=== PATIENT | female | born 1945 | race Caucasian/White ===

== ENCOUNTER → 2016-08-01 | Outpatient (CLI) | payer MEDICARE ==
[~2016-08-01] MED LIST: REGADENOSON 0.4 MG/5 ML SYRINGE IV ONE
--- NOTE | 2016-08-01 10:51 | ECHOF ---
Referral Reason:R94.31 abn ekg MEASUREMENTS -------- HEIGHT: 154.9 cm WEIGHT: 59.0 kg BP: IVSd: 0.7 cm (0.6 - 1.1) LVIDd: 3.6 cm (3.9 - 5.3) LVPWd: 1.0 cm (0.6 - 1.1) IVSs: 1.6 cm LVIDs: 2.1 cm LVPWs: 1.5 cm Ao Diam: 2.5 cm (2.0 - 3.7) AV Cusp: 1.3 cm (1.5 - 2.6) LA Diam: 3.6 cm (2.7 - 3.8) MV EXCURSION: 10.759 mm (> 18.000) MV EF SLOPE: 48 mm/s (70 - 150) EPSS: 0.6 cm MV E Tyler: 0.85 m/s MV DecT: 185 ms MV A Tyler: 1.08 m/s MV E/A Ratio: 0.79 RAP: 5.00 mmHg RVSP: 31.22 mmHg FINDINGS -------- Sinus rhythm. This was a technically good study. Left ventricular wall thickness is normal. Overall left ventricular systolic function is normal with, an EF between 55 - 60 %. The right ventricle is normal in size and function. The left atrium is normal in size. The right atrium is normal in size. Aortic valve is trileaflet and is mildly thickened. The mitral valve leaflets are mildly thickened. Mild mitral regurgitation is present. Mild tricuspid regurgitation present. The right ventricular systolic pressure, as measured by Doppler, is 31.22mmHg. Pulmonic valve appears structurally normal. The aortic root, ascending aorta and aortic arch are normal. The pericardium is normal. CONCLUSIONS -------- 1. Sinus rhythm. 2. Mild mitral regurgitation is present. 3. Mild tricuspid regurgitation present. 4. The right ventricular systolic pressure, as measured by Doppler, is 31.22mmHg. 5. Pulmonic valve appears structurally normal. 6. The aortic root, ascending aorta and aortic arch are normal. 7. The pericardium is normal. 8. This was a technically good study. 9. Left ventricular wall thickness is normal. 10. Overall left ventricular systolic function is normal with, an EF between 55 - 60 %. 11. The right ventricle is normal in size and function. 12. The left atrium is normal in size. 13. The right atrium is normal in size. 14. Aortic valve is trileaflet and is mildly thickened. 15. The mitral valve leaflets are mildly thickened. PESTICIDE APPLICATOR: Kassandra Ford RDCS
--- NOTE | 2016-08-01 11:43 | NM ---
EXAMINATION TYPE: NM stress lexiscan cardiolite DATE OF EXAM: 08/01/2016 11:35 AM COMPARISON: NONE HISTORY: Abnormal EKG TECHNIQUE: After the intravenous administration of 9.9 mCi Tc 99m Sestamibi - Cardiolite resting SPE CT images acquired 45 minutes post injection. The patient received 0.4mg Lexiscan, 27 mCi Tc 99m Sestamibi - Stress images obtained 30 minutes post injection FINDINGS: Review of stress and rest SPECT images demonstrates no distinct perfusion abnormality. Gated analysi s shows normal wall motion with an estimated left ventricular ejection fraction of 79 %. IMPRESSION: No scintigraphic evidence for reversible ischemia.
--- NOTE | 2016-08-01 12:08 | EST ---
DATE OF SERVICE: 08/01/16. AGE: 71Y SEX: F HT: 5' WT: 130 lbs. Protocol Arnaud: Other: Stage: Dur. of Exercise: *Heart Rate Blood Pressure *Rest: 73 Rest: 130/72 * *Max. Achieved: 102 Maximum BP: 117/69 85% PMHR: 100% PMHR: *METS: INDICATIONS: To evaluate cardiac status. MEDICATIONS: Baseline EKG showed sinus rhythm with a right bundle branch block pattern. Blood pressure at rest is 130/72 with a pulse rate of 73. A standard dose of Lexiscan was infused. EKGs taken during and after infusion did not reveal any significant changes from the baseline. FINAL IMPRESSION: 1. Negative Lexiscan stress test. 2. Report on the nuclear images to be given by the radiologist.
== END | disposition home or self-care (01) ==
LOC: RADNMMAIN 09:07
PROVIDERS: ATTEND Family Medicine
DX: R94.31 Abnormal electrocardiogram [ECG] [EKG] (principal)
CPT/HCPCS: 93017; 93306; 78452; A9500; J2785

== ENCOUNTER → 2017-01-16 | Outpatient (CLI) | payer MEDICARE ==
--- NOTE | 2017-01-16 14:46 | NM ---
EXAMINATION TYPE: NM bone scan whole body DATE OF EXAM: 01/16/2017 COMPARISON: NONE HISTORY: Left hip pain Delayed whole-body scanning was performed following the injection of 27 mCi Tc 99m MDP. Images acqui red 3.5 hours post injection. FINDINGS: There is increased uptake surrounding the left hip prostheses. Photopenic defect is seen bilaterally compatible with bilateral hip prostheses. IMPRESSION: There is increased uptake surrounding the shaft of the left hip prostheses which could be associated with loosening or infection correlate with tagged WBC study.
== END ==
LOC: RADNMMAIN 09:39
PROVIDERS: ATTEND Family Medicine
DX: S72.92XA Unspecified fracture of left femur, initial encounter for closed fracture (principal)
CPT/HCPCS: 78306; A9503

== ENCOUNTER → 2017-02-27 | Outpatient (CLI) | payer MEDICARE ==
--- NOTE | 2017-03-01 13:18 | NM ---
EXAMINATION TYPE: NM WBC limited DATE OF EXAM: 02/28/2017 COMPARISON: Bone scan 01/16/2017 HISTORY: Pain TECHNIQUE: Following administration of 18.1 mCi Tc99m Ceretec. Images obtained 4 hour(s) and 24 gustavo r(s) post injection. FINDINGS: There is no intense abnormal uptake surrounding the left hip prostheses. Bilateral photopenic defects are seen. IMPRESSION: No intense abnormal uptake regarding the left hip prostheses. Previous finding may been the basis of loosening or recent surgery. Correlate clinically.
== END | disposition home or self-care (01) ==
LOC: RADNMMAIN 06:47
PROVIDERS: ATTEND Family Medicine
DX: M25.552 Pain in left hip (principal); Z98.890 Other specified postprocedural states
CPT/HCPCS: 78805

== ENCOUNTER 2017-09-21 15:04 | Inpatient (IN) | payer MEDICARE ==
[2017-09-21] MEDS ORDERED: HYDROcodone/APAP 5-325MG 1 EACH TAB PO PRN (16:11)
[2017-09-21 17:04] VITALS: BMI 23.6
[2017-09-21] MEDS ORDERED: oxyCODONE-APAP 5-325MG 1 EACH TAB PO PRN (17:05)
[2017-09-21] MEDS: oxyCODONE-APAP 5-325MG 1 EACH TAB PO PRN ×2 (17:23→21:07)
--- NOTE | 2017-09-21 17:56 | P.CNOR ---
History of Present Illness - [facility] Consult date: 09/21/17 Consult reason: fracture History of present illness: This is a 72-year-old female who is seen and evaluated today at bedside [facility]. Patient was a direct admit due to abnormal x-rays. Patient apparently had a fall about 2 weeks ago in her kitchen, this was unobserved the patient cannot remember specifically how she fell. Since that fall she's had right leg and hip pain. The pain has progressively gotten worse , her primary care doctor did order x-rays today. Images demonstrated a acetabular fracture involving the right side and possible inferior pubic rami fracture on the right side. She was then admitted directly to the hospital for further evaluation. Patient is a history of a right total hip arthroplasty and right total knee arthroplasty that were done about 3 years ago. 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 She was treated at [facility] for this. Her short-term memory was affected. she then underwent a left total hip arthroplasty in 2017, they stated about 10 days after surgery she was having increasing pain. She was found to have a periprosthetic fracture involving the left femur, and underwent subsequent surgery. All her orthopedic surgeries have been done by Dr. Herrera in [place]. Patient has undergone a few different imaging studies for pain involving the left lower extremity, there has been no further surgeries to the left lower extremity since those tests. Patient had been doing rather well with regards to left lower extremity. Since the fall, the pain is mainly involve the right side. She notes no acute changes in the left lower extremity, bilateral upper extremity pain, new onset cervical, thoracic or lumbar pain. When examined today at bedside, she describes more the pain in the buttock region on the right lower extremity, she also notes some discomfort surrounding the knee. Review of Systems Constitutional: Reports as per HPI Past Medical History Past Medical History: Blood Disorder, CVA/TIA, Diabetes Mellitus, Eye Disorder, Hyperlipidemia, Memory Impairment, Osteoarthritis (OA), Pneumonia Additional Past Medical History / Comment(s): anemia, cva mar 2015, leaky heart valve History of Any Multi-Drug Resistant Organisms: None Reported Past Surgical History: Section, Orthopedic Surgery, Tonsillectomy Additional Past Surgical History / Comment(s): x 2, bilateral hip replacements, left hip x 2, right knee replacement Past Anesthesia/Blood Transfusion Reactions: No Reported Reaction Past Psychological History: No Psychological Hx Reported Smoking Status: Never smoker Past Alcohol Use History: None Reported Past Drug Use History: None Reported - Past Family History Father Family Medical History: Respiratory Disorder Additional Family Medical History / Comment(s): fibrosis emphysema Mother Family Medical History: Cancer Medications and Allergies Home Medications Medication Instructions Recorded Confirmed Type Aspirin EC [Ecotrin Low Dose] 81 mg PO DAILY 09/21/17 09/21/17 History Atorvastatin [Lipitor] 20 mg PO HS 09/21/17 09/21/17 History Cyanocobalamin (Vitamin B-12) 1,000 mcg PO DAILY 09/21/17 09/21/17 History [Vitamin B-12] Memantine HCl [Namenda] 5 mg PO BID 09/21/17 09/21/17 History Naproxen Sodium [Aleve] 220 mg PO BID PRN 09/21/17 09/21/17 History Vit C/E/Zn/Coppr/Lutein/Zeaxan 1 cap PO BID 09/21/17 09/21/17 History [Preservision Areds 2 Softgel] metFORMIN HCL 1,000 mg PO BID 09/21/17 09/21/17 History Allergies Allergy/AdvReac Type Severity Reaction Status Date / Time grape Allergy Anaphylaxis Verified 09/21/17 16:49 latex Allergy Rash/Hives Verified 09/21/17 16:49 peanut Allergy Anaphylaxis Verified 09/21/17 16:49 Penicillins Allergy Rash/Hives Verified 09/21/17 16:49 Sulfa (Sulfonamide Allergy Rash/Hives Verified 09/21/17 16:49 Antibiotics) Physical Examination Right lower extremity: No obvious open lesions or sores present Areas of ecchymosis or soft tissue swelling Notable scar of the anterior aspect of the knee, it is well-healed. No effusion present on the knee. She can fully extend and flex past 90 and minimal discomfort. There is slight tenderness with palpation noted over the anterior distal thigh. She can flex the hip up to about 90 with minimal discomfort, logroll maneuver reproduces some discomfort in the groin and posterior buttock region Her calf is soft, no tenderness with palpation. Plantar flexion, dorsiflexion, EHL, FHL are intact. Sensory exam to light touch throughout extremities intact. Dorsal pedis pulses 2+ Results - Diagnostic results Hip x-ray: report reviewed, image reviewed Assessment and Plan Assessment: Imaging: Multiple x-rays were reviewed today, including hip and pelvis, right femur, right tibia and fibula. Images demonstrated a stable right total knee arthroplasty images demonstrated a stable right hip prosthesis. Fracture noted of the acetabulum. Irregularity noted in the inferior pubic rami, this could represent a subacute fracture Assessment: 1. Right acetabular fracture 2. Possible subacute inferior pubic rami fracture 3. History of right total hip arthroplasty and right total knee arthroplasty, both appear stable Plan: I was able to discuss this case and reviewed images with maintained Dr. Florez. No orthopedic surgical intervention needed at this time. We would like to proceed with conservative measures, more specifically nonweightbearing on the right lower extremity I was able to discuss the treatment plan with the patient and her today bedside, they are in good understanding and would like to proceed Nonweightbearing right lower extremity Pain control per medical recommendations GI and DVT prophylaxis per medical recommendations We will continue to follow the patient during inpatient stay Further recommendations to follow Time with Patient: Less than 30
[2017-09-21] MEDS: INSULIN ASPART 100 UNIT/ML 1 ML 10 ML VIAL SQ SCH ×2 (19:37→21:08)
[2017-09-21 20:22] LABS: Glucose,Whole Blood 163 mg/dL (75-99)
[2017-09-21] MEDS ORDERED: NAPROXEN 250 MG TAB PO PRN (22:36)
--- NOTE | 2017-09-21 23:19 | HP ---
HISTORY AND PHYSICAL CHIEF COMPLAINT: Pelvic fracture. HISTORY OF PRESENT ILLNESS: 72-year-old white female who was admitted due to acute pelvic fracture and inability to ambulate on her right leg. She fell a few weeks ago and has been progressively worsening. She has acetabular fracture on the right side and a possible inferior pubic rami fracture, right-sided pain radiating to the right and limited ambulation. She has a history of a right total hip arthroscopy, right total knee arthroscopy 3 years ago. She developed a stroke postop for those. She had short-term memory was affected. She had a left hip total arthroscopy in 2017. She had a periprosthetic fracture of the left femur at that time by Dr. Herrera. This pain is mostly in the right hip to the right pelvic area. She has cervical, thoracic and lumbar pain. Pain is mainly in the right buttock and the right lower extremity in the right anterior pelvic area. PAST MEDICAL HISTORY: Blood disorder, CVA, TIA, diabetes mellitus, eye disorder, dyslipidemia, memory impairment, osteoarthritis, pneumonia, anemia, leaky heart valve, surgery, , orthopedic surgery, tonsillectomy, , bilateral hip replacements, left hip x2, right knee replacement, left knee replacement. SOCIAL HISTORY: No smoking. No alcohol. No illicit drugs. FAMILY HISTORY: Father, respiratory disorder, emphysema. Mother cancer. HOME MEDICATIONS: Include aspirin 81 mg daily, Lipitor 20 mg daily. Namenda 5 mg b.i.d. vitamin C, E, zinc, copper, lutein, B12, metformin 1000 b.i.d. ALLERGIES: PEANUTS, LATEX, GRAPES, SULFA. PHYSICAL EXAM: Vital signs stable. Afebrile. Cardiovascular S1, S2. LUNGS: Clear. GI soft. Musculoskeletal is palpation right hip, right groin. Limited range of motion of the right hip and leg. Log-rolling had pain in the groin and posterior buttock region. Hematology negative Homans. Vascular normal dorsalis pedis posterior radial pulse. Tenderness to palpation in the anterior distal thigh in the right groin area in the abdomen in the right hip. X-ray shows a fracture of the acetabulum, possibly inferior pubic rami fracture too. Inpatient admission. Possible PT OT, pain medications, rehab versus orthopedic consultations recommendation. MMODL / IJN: [id number] /
[2017-09-22] MEDS: SODIUM CHLORIDE 0.9% 1,000 ML IV SCH ×2 (00:28→20:53)
[2017-09-22 07:09] LABS: Glucose,Whole Blood 135 mg/dL (75-99)
[2017-09-22] MEDS: ONDANSETRON 4 MG/2 ML VIAL IVP PRN ×2 (08:21→13:48)
[2017-09-22] MEDS: CYANOCOBALAMIN 500 MCG TAB PO SCH (08:27)
[2017-09-22] MEDS: INSULIN ASPART 100 UNIT/ML 1 ML 10 ML VIAL SQ SCH ×4 (08:27→20:51)
[2017-09-22] MEDS: VIT A,C & E-LUTEIN-MINERALS 1 EACH TAB PO SCH ×2 (08:28→20:52)
[2017-09-22] MEDS: metFORMIN 500 MG TAB PO SCH ×2 (09:53→17:34)
[2017-09-22] MEDS: ASPIRIN 81 MG PO SCH (09:53)
[2017-09-22] MEDS: MEMANTINE 5 MG TAB PO SCH ×2 (09:53→20:52)
[2017-09-22] MEDS: oxyCODONE-APAP 5-325MG 1 EACH TAB PO PRN ×2 (11:36→23:56)
[2017-09-22 12:00] LABS: Glucose,Whole Blood 178 mg/dL (75-99)
[2017-09-22 16:53] LABS: Glucose,Whole Blood 147 mg/dL (75-99)
[2017-09-22 18:38] LABS: Hemoglobin A1C 6.3 % (4.0-6.0)
[2017-09-22] MEDS: ATORVASTATIN 20 MG TAB PO SCH (20:53)
[2017-09-22 20:54] LABS: Glucose,Whole Blood 127 mg/dL (75-99)
[2017-09-23 06:46] LABS: Glucose,Whole Blood 117 mg/dL (75-99)
[2017-09-23] MEDS: INSULIN ASPART 100 UNIT/ML 1 ML 10 ML VIAL SQ SCH ×4 (07:58→20:06)
[2017-09-23] MEDS: ONDANSETRON 4 MG/2 ML VIAL IVP PRN (08:01)
[2017-09-23] MEDS: oxyCODONE-APAP 5-325MG 1 EACH TAB PO PRN ×2 (08:02→15:26)
[2017-09-23] MEDS: VIT A,C & E-LUTEIN-MINERALS 1 EACH TAB PO SCH ×2 (08:02→20:06)
[2017-09-23] MEDS: CYANOCOBALAMIN 500 MCG TAB PO SCH (08:03)
[2017-09-23] MEDS: metFORMIN 500 MG TAB PO SCH ×2 (08:03→17:28)
[2017-09-23] MEDS: ASPIRIN 81 MG PO SCH (08:03)
[2017-09-23] MEDS: MEMANTINE 5 MG TAB PO SCH ×2 (08:03→20:06)
[2017-09-23 11:36] LABS: Glucose,Whole Blood 99 mg/dL (75-99)
--- NOTE | 2017-09-23 13:33 | PN ---
PROGRESS NOTE DATE OF SERVICE: 09/22/2017. SUBJECTIVE: A 72-year-old white female who was admitted to the hospital with pelvic ramus fractures, it is on the right side. correction placement is needed. Awaiting for rehab placement. Her vital signs are stable. Pain is under control. CARDIOVASCULAR: S1, S2. We gave her nausea medicine as she had some nausea. GI: Soft, nontender. HEMATOLOGIC: Negative Homans. PLAN: Await for rehab placement in the residential, hopefully on Monday. Continue on current treatment. MMODL / IJN: [id number] /
[2017-09-23] MEDS: SODIUM CHLORIDE 0.9% 1,000 ML IV SCH (16:27)
[2017-09-23 16:48] LABS: Glucose,Whole Blood 154 mg/dL (75-99)
[2017-09-23] MEDS: ATORVASTATIN 20 MG TAB PO SCH (20:06)
[2017-09-23 20:25] LABS: Glucose,Whole Blood 168 mg/dL (75-99)
--- NOTE | 2017-09-23 23:14 | PN ---
PROGRESS NOTE SUBJECTIVE: A 72-year-old white female with right pelvic fracture, unable to place any pressure on the foot. CARDIOVASCULAR: S1, S2. LUNGS: Clear. GI: Soft. HEMATOLOGIC: Negative Homans'. ASSESSMENT: 1. Right pelvic fracture. 2. Diabetes mellitus. 3. Hypertension. 4. Prior stroke. Continue with PT/OT, no weightbearing. Await snf placement. MMODL / IJN: [id number] /
[2017-09-24 07:17] LABS: Glucose,Whole Blood 112 mg/dL (75-99)
[2017-09-24 07:23] LABS: Basophils # (A) 0.1 k/uL (0-0.2); Basophils % (A) 1 %; Eosinophils # (A) 0.1 k/uL (0-0.7); Eosinophils % (A) 1 %; HCT 35.7 % (34.0-46.0); HGB 12.5 gm/dL (11.4-16.0); Lymphocytes # (A) 1.9 k/uL (1.0-4.8); Lymphocytes % (A) 22 %; MCH 32.6 pg (25.0-35.0); MCHC 35.2 g/dL (31.0-37.0); MCV 92.8 fL (80.0-100.0); Mean Platelet Volume 6.8; Monocytes # (A) 0.5 k/uL (0-1.0); Monocytes % (A) 6 %; Neutrophils # (A) 5.8 k/uL (1.3-7.7); Neutrophils % (A) 68 %; Platelet Count 225 k/uL (150-450); RBC 3.85 m/uL (3.80-5.40); WBC 8.5 k/uL (3.8-10.6)
[2017-09-24 07:35] LABS: ALT 22 U/L (9-52); AST 18 U/L (14-36); Albumin 3.8 g/dL (3.5-5.0); Alkaline Phosphatase 129 U/L (38-126); Anion Gap 11 mmol/L; Blood Urea Nitrogen 15 mg/dL (7-17); Calcium 9.7 mg/dL (8.4-10.2); Carbon Dioxide 27 mmol/L (22-30); Chloride 103 mmol/L (98-107); Glucose 110 mg/dL (74-99); Potassium 4.3 mmol/L (3.5-5.1); Sodium 141 mmol/L (137-145); Total Bilirubin 0.5 mg/dL (0.2-1.3); Total Protein 6.5 g/dL (6.3-8.2)
[2017-09-24] MEDS: INSULIN ASPART 100 UNIT/ML 1 ML 10 ML VIAL SQ SCH ×4 (08:01→21:08)
[2017-09-24] MEDS: metFORMIN 500 MG TAB PO SCH ×2 (08:08→17:41)
[2017-09-24] MEDS: VIT A,C & E-LUTEIN-MINERALS 1 EACH TAB PO SCH ×3 (08:08→21:02)
[2017-09-24] MEDS: CYANOCOBALAMIN 500 MCG TAB PO SCH (08:08)
[2017-09-24] MEDS: ASPIRIN 81 MG PO SCH (08:08)
[2017-09-24] MEDS: MEMANTINE 5 MG TAB PO SCH ×3 (08:08→21:02)
[2017-09-24 11:50] LABS: Glucose,Whole Blood 89 mg/dL (75-99)
[2017-09-24 15:32] VITALS: RESP 16
[2017-09-24] MEDS: SODIUM CHLORIDE 0.9% 1,000 ML IV SCH (16:58)
[2017-09-24 17:00] LABS: Glucose,Whole Blood 193 mg/dL (75-99)
--- NOTE | 2017-09-24 18:37 | PN ---
PROGRESS NOTE SUBJECTIVE: 72-year-old white female with right pelvic fracture. Await rehab placement tomorrow. Having no chest pain or shortness of breath. CARDIOVASCULAR: S1, S2. Lungs clear. GI soft. Hematologic negative Homans. Labs are reviewed. Sugars glucose reviewed. ASSESSMENT: 1. Right pelvic fracture. 2. Prior cerebrovascular accident. 3. Diabetes mellitus. 4. Hypertension. 5. Generalized debility. 6. No weightbearing per orthopedic surgeon. Possible discharge home to rehab center tomorrow. MMODL / IJN: [id number] /
[2017-09-24] MEDS: ATORVASTATIN 20 MG TAB PO SCH ×2 (19:46→21:02)
[2017-09-24 20:57] LABS: Glucose,Whole Blood 111 mg/dL (75-99)
[2017-09-24] MEDS: oxyCODONE-APAP 5-325MG 1 EACH TAB PO PRN (21:26)
[2017-09-25 07:01] LABS: Glucose,Whole Blood 133 mg/dL (75-99)
[2017-09-25] MEDS: metFORMIN 500 MG TAB PO SCH (07:24)
[2017-09-25] MEDS: INSULIN ASPART 100 UNIT/ML 1 ML 10 ML VIAL SQ SCH ×2 (07:25→12:09)
[2017-09-25] MEDS: CYANOCOBALAMIN 500 MCG TAB PO SCH (08:06)
[2017-09-25] MEDS: ASPIRIN 81 MG PO SCH (08:06)
[2017-09-25] MEDS: MEMANTINE 5 MG TAB PO SCH (08:06)
[2017-09-25] MEDS: VIT A,C & E-LUTEIN-MINERALS 1 EACH TAB PO SCH (08:06)
[2017-09-25] MEDS: oxyCODONE-APAP 5-325MG 1 EACH TAB PO PRN ×2 (08:06→17:07)
--- NOTE | 2017-09-25 09:59 | DS ---
DISCHARGE SUMMARY DISCHARGE DIAGNOSES: 1. Right pelvic fracture. 2. Gait dysfunction requiring physical therapy on her right leg. 3. Dyslipidemia. 4. Diabetes mellitus. 5. Dementia. 6. History of cerebrovascular accident. HOME MEDICATIONS: 1. Aspirin 81 mg daily. 2. Lipitor 20 mg daily. 3. Vitamin B12, 1000 daily. 4. Memantine 5 mg b.i.d. 5. Metformin 1000 b.i.d. 6. Naprosyn 220 b.i.d. p.r.n. 7. Multivitamin 1 capsule b.i.d. CONDITION: Stable. PROGNOSIS: Guarded. Ambulate as tolerated except no weightbearing on the right leg until cleared by Orthopedic Surgery. She will need a rehab facility for the right leg rehab due to inability to get around and take care of herself at home due to right pelvic fracture on the right side. Pain radiating down her right hip. Seen by Orthopedic Surgery. Cleared her for discharge on physical therapy per their recommendations. She is nonweightbearing at this time. She will need long-term physical therapy at a [facility]. She wants to go to [facility] [place], I believe. MMODL / HOUSTONN: [id number] /
[2017-09-25 11:47] LABS: Glucose,Whole Blood 127 mg/dL (75-99)
[2017-09-25] MEDS: SODIUM CHLORIDE 0.9% 1,000 ML IV SCH (12:10)
[2017-09-25 15:14] VITALS: BP 94/60; PULSE 98; TEMP 98.2
[2017-09-25 17:14] LABS: Glucose,Whole Blood 155 mg/dL (75-99)
== END 2017-09-25 17:45 | DRG 536 ==
LOC: 3SUR 15:14
PROVIDERS: ADMIT Family Medicine; ATTEND Family Medicine
DX: S32.401A Unspecified fracture of right acetabulum, initial encounter for closed fracture (principal); S32.591A Other specified fracture of right pubis, initial encounter for closed fracture; E11.9 Type 2 diabetes mellitus without complications; F03.90 Unspecified dementia, unspecified severity, without behavioral disturbance, psychotic disturbance, mood disturbance, and anxiety; I69.311 Memory deficit following cerebral infarction; I10 Essential (primary) hypertension; M54.5 Low back pain; M54.2 Cervicalgia; M54.6 Pain in thoracic spine; M79.601 Pain in right arm; M79.602 Pain in left arm; R26.9 Unspecified abnormalities of gait and mobility; E78.5 Hyperlipidemia, unspecified; M19.91 Primary osteoarthritis, unspecified site; Z79.82 Long term (current) use of aspirin; Z79.84 Long term (current) use of oral hypoglycemic drugs; Z79.899 Other long term (current) drug therapy; Z96.643 Presence of artificial hip joint, bilateral; Z96.653 Presence of artificial knee joint, bilateral; Z86.79 Personal history of other diseases of the circulatory system; Z91.81 History of falling; Z91.040 Latex allergy status; Z91.010 Allergy to peanuts; Z88.0 Allergy status to penicillin; Z88.2 Allergy status to sulfonamides; Z91.018 Allergy to other foods; W19.XXXA Unspecified fall, initial encounter; Y92.000 Kitchen of unspecified non-institutional (private) residence as the place of occurrence of the external cause
CPT/HCPCS: 80053; 83036; 85025

== ENCOUNTER → 2017-09-21 | Outpatient (CLI) | payer MEDICARE ==
--- NOTE | 2017-09-21 14:31 | XR ---
"EXAMINATION TYPE: XR Hip RT and AP Pelvis DATE OF EXAM: 09/21/2017 COMPARISON: NONE HISTORY: Trauma and pain TECHNIQUE: A single AP view of the pelvis is obtained. Two views of the right hip are obtained. FINDINGS: There is a fracture at the level of the acetabulum on the right minimal displacement. Bone mineralization is reduced. Inferior pubic ramus shows some irregularity possibly due to to nondisplac ed fracture. Patient shows bilateral hip arthroplasties. IMPRESSION: Right-sided pelvic fractures as described. A Yellow level critical message alert has been initiated for Alvin Shields MD via the [employer] 36 0 | Critical Results System on 09/21/2017 2:29 PM. This message alert has been sent to Alvin Shields MD via the preferences provided by the clinician for the receipt of Radiology Critical Findings. [facility] ID [id number]."
--- NOTE | 2017-09-21 14:34 | XR ---
Right leg HISTORY: Trauma and pain 2 views of the right leg Patient is status post right knee arthroplasty. Bone mineralization is reduced. Alignment is maintain ed. Soft tissue swelling noted. Vascular calcifications seen. Degenerative changes are present in the intertarsal regions. Suspect soft tissue swelling. IMPRESSION: No acute fracture or dislocation is evident.
--- NOTE | 2017-09-21 14:36 | XR ---
Right femur HISTORY: Trauma and pain 2 views of the right femur, 3 images, correlation to right hip and right leg pain Patient is status post right knee arthroplasty, right hip arthroplasty. There is anatomic alignment. Bone mineralization is reduced. IMPRESSION: No acute fracture or dislocation of the right femur. Postop changes and osteopenia.
[2017-09-21 16:48] LABS: Glucose,Whole Blood 138 mg/dL (75-99)
== END | disposition home or self-care (01) ==
LOC: RADXRMAIN 13:26
PROVIDERS: ATTEND Family Medicine
DX: M25.551 Pain in right hip (principal); M79.604 Pain in right leg; S32.82XA Multiple fractures of pelvis without disruption of pelvic ring, initial encounter for closed fracture
CPT/HCPCS: 73502

== ENCOUNTER → 2018-02-07 | Outpatient (CLI) | payer MEDICARE ==
--- NOTE | 2018-02-07 17:16 | US ---
EXAMINATION TYPE: US carotid duplex BILAT DATE OF EXAM: 02/07/2018 COMPARISON: NONE CLINICAL HISTORY: 73-year-old female Carotid Stenosis I65.23. H/O TIA TECHNIQUE: Carotid duplex ultrasound examination. In direct Doppler criteria was utilized. FINDINGS: EXAM MEASUREMENTS: RIGHT: Peak Systolic Velocity (PSV) cm/sec ----- Right CCA: 102.0 ----- Right ICA: 70.1 ----- Right ECA: 62.2 ICA/CCA ratio: 0.7 RIGHT: End Diastole cm/sec ----- Right CCA: 22.7 ----- Right ICA: 20.9 ----- Right ECA: 8.8 LEFT: Peak Systolic Velocity (PSV) cm/sec ----- Left CCA: 88.4 ----- Left ICA: 89.3 ----- Left ECA: 76.5 ICA/CCA ratio: 1.0 LEFT: End Diastole cm/sec ----- Left CCA: 18.0 ----- Left ICA: 29.1 ----- Left ECA: 76.5 VERTEBRALS (direction of flow): Right Vertebral: Antegrade Left Vertebral: Antegrade Rhythm: Normal Mild atherosclerotic changes with no significant velocity elevations. IMPRESSION: No hemodynamically significant stenosis appreciated in either internal carotid artery. Criteria for Assigning % of Stenosis / Diameter reduction (Estimation based on the indirect measurements of the internal carotid artery velocities (ICA PSV). 1. Normal (no stenosis)=ICA PSV < 125 cm/s: ratio < 2.0: ICA EDV<40 cm/s. 2. Less than 50% stenosis=ICA PSV < 125 cm/s: ratio < 2.0: ICA EDV<40 cm/s. 3. 50 to 69% stenosis=ICA PSV of 125 to 230 cm/s: ration 2.0 ? 4.0: ICA EDV 40-100 cm/s. 4. Greater than 70% stenosis to near occlusion= ICA PSV > 230 cm/s: ratio > 4.0: ICA EDV > 100 cm/s. 5. Near occlusion= ICA PSV velocities may be low or undetectable: variable ratio and ICA EDV. 6. Total occlusion=unable to detect flow.
== END | disposition home or self-care (01) ==
LOC: RADUSWWP 15:07
PROVIDERS: ATTEND Family Medicine
DX: I65.29 Occlusion and stenosis of unspecified carotid artery (principal)
CPT/HCPCS: 93880